=== PATIENT | male | born 1950 | race Caucasian/White ===

== ENCOUNTER → 2022-06-21 14:34 | Outpatient (CLI) | payer MEDICARE, MEDICAID, SELFPAY ==
[2022-06-21 14:13] LABS: Basophils # 0.1 K/mm3 (0-0.2); Basophils % 0.5 % (0.1-2.0); Eosinophils # 0.2 K/mm3 (0.0-0.4); Eosinophils % 2.1 % (0.1-12.0); Hematocrit 40.4 % (42.0-52.0); Lymphocytes # 2.6 K/mm3 (0.7-4.5); Lymphocytes % 25.2 % (10-50); Mean Corpuscular Hemoglobin 37.2 pg (27.0-31.2); Mean Corpuscular Volume 88.6 fl (80-94); Mean Platelet Volume 9.2 fl (7.4-10.4); Monocytes # 0.8 K/mm3 (0.1-1.0); Monocytes % 7.3 % (1.7-9.3); Neutrophils # 6.8 K/mm3 (1.8-7.8); Platelet Count 432 K/mm3 (142-424); Red Blood Count 4.56 M/mm3 (4.60-6.20); White Blood Count 10.4 K/mm3 (4.8-10.8)
[2022-06-21 14:22] LABS: Chloride 103 mmol/L (98-107); Potassium 4.2 mmoL/L (3.5-5.1); Sodium 138 mmol/L (136-145)
[2022-06-21 14:24] LABS: Alanine Aminotransferase 22 U/L (12-78); Alkaline Phosphatase 98 U/L (38-126); Aspartate Amino Transferase 25 U/L (17-59); Bilirubin,Total 0.7 mg/dl (0.2-1.3); Blood Urea Nitrogen 18 mg/dl (9-20); Estimated Glomerular Filt Rate 96 ml/min (>60); GFR (African American) 116 ML/MIN (>60)
[2022-06-21 14:25] LABS: Albumin/Globulin Ratio 1.5 (1.1-1.8); Anion Gap 18.2 mEq/L (5-15); Calcium 9.4 mg/dl (8.4-10.2); Carbon Dioxide 21 mmol/L (22.0-30.0); Chol/HDL Ratio 3.1 (1-3.5); Cholesterol 129 mg/dl (140-200); Globulin 2.6 g/dL (1.3-3.2); Glucose 77 mg/dl (74-100); HDL Cholesterol 41 mg/dl (40-60); Total Protein,Serum 6.6 g/dl (6.3-8.2); Triglycerides 155 mg/dl (30-150); VLDL Cholesterol 31 mg/dL (0-40)
[2022-06-21 14:37] LABS: Direct LDL Cholesterol 71.37 mg/dL (100-129)
[2022-06-21 15:33] LABS: Mean Corpuscular HGB Conc 41.9 g/dL (31.8-35.4)
== END ==
PROVIDERS: PCP Family Medicine; Visit Provider Family Medicine
DX: M54.9 Dorsalgia, unspecified; Z12.5 Encounter for screening for malignant neoplasm of prostate; E78.00 Pure hypercholesterolemia, unspecified
CPT/HCPCS: 80053; 80061; 85025; 87086; G0103

== ENCOUNTER 2023-08-28 10:19 | Outpatient (CLI) | payer MEDICARE, MEDICAID, SELFPAY ==
[2023-08-28 18:29] LABS: Basophils # 0.1 K/mm3 (0-0.2); Basophils % 0.8 % (0.1-2.0); Eosinophils # 0.2 K/mm3 (0.0-0.4); Eosinophils % 1.9 % (0.1-12.0); Hemoglobin 16.1 g/dL (14.1-18.0); Lymphocytes # 2.3 K/mm3 (0.7-4.5); Lymphocytes % 27.8 % (10-50); Mean Corpuscular HGB Conc 32.2 g/dL (31.8-35.4); Mean Corpuscular Hemoglobin 33.1 pg (27.0-31.2); Mean Platelet Volume 8.7 fl (7.4-10.4); Monocytes # 0.6 K/mm3 (0.1-1.0); Monocytes % 7.9 % (1.7-9.3); Neutrophils % 61.6 % (37.0-80.0); Platelet Count 268 K/mm3 (142-424); Red Blood Count 4.86 M/mm3 (4.60-6.20); White Blood Count 8.1 K/mm3 (4.8-10.8)
[2023-08-28 19:34] LABS: Alanine Aminotransferase 21 U/L (12-78); Albumin Level 3.8 g/dl (3.5-5.0); Albumin/Globulin Ratio 1.4 (1.1-1.8); Alkaline Phosphatase 98 U/L (38-126); Anion Gap 9.4 mEq/L (5-15); Aspartate Amino Transferase 24 U/L (17-59); Bilirubin,Total 0.6 mg/dl (0.2-1.3); Blood Urea Nitrogen 15 mg/dl (9-20); Calcium 9.4 mg/dl (8.4-10.2); Carbon Dioxide 24 mmol/L (22.0-30.0); Chloride 110 mmol/L (98-107); Chol/HDL Ratio 2.9 (1-3.5); Cholesterol 142 mg/dl (140-200); Estimated Glomerular Filt Rate 83 ml/min (>60); GFR (African American) 101 ML/MIN (>60); Globulin 2.7 g/dL (1.3-3.2); Glucose 80 mg/dl (74-100); HDL Cholesterol 49 mg/dl (40-60); Potassium 4.4 mmoL/L (3.5-5.1); Sodium 139 mmol/L (136-145); Total Protein,Serum 6.5 g/dl (6.3-8.2); Triglycerides 72 mg/dl (30-150); VLDL Cholesterol 14 mg/dL (0-40)
[2023-08-28 19:53] LABS: Direct LDL Cholesterol 81.22 mg/dL (100-129)
[2023-08-28 20:04] LABS: Prostate Specific Ag Screen 3.1 ng/ml (0.0-4.0)
== END 2023-08-28 23:59 | disposition home or self-care (01) ==
LOC: LAB.DROPOF 08-29 10:20
PROVIDERS: PCP Family Medicine; Visit Provider Family Medicine
DX: Z12.5 Encounter for screening for malignant neoplasm of prostate (principal); E78.5 Hyperlipidemia, unspecified
CPT/HCPCS: 80053; 80061; 85025; G0103

== ENCOUNTER 2023-11-21 07:01 | Outpatient (CLI) | payer MEDICARE, MEDICAID, SELFPAY ==
--- NOTE | 2023-11-21 | CA_ITS ---
APPROVED REPORT Exam: Pharmacologic Technologist: Corinna Nelson Ht: 6 ft 1 in Wt: 292 lbs BSA: 2.53 m2 HR: 50 bpm BP: 124/87 mmHg Indications: Dyspnea, CAD Medical History Medications: Hydralazine,,,,, Aspirin,,,,, Atorvastatin,,,,, MeLOXICAM,,,,, Cyclobenzaprine,,,,, Hydrocodone-Acetaminophen,,,,, Amlodipine-Benazepril,,,,, LiNgclotide,,,,, Stress Test Details Test: LEXISCAN HR Resting HR: 53 bpm Max Heart Rate (APMHR): 149 bpm Max HR Achieved: 78 bpm Target HR (85% APMHR): 127 bpm % of APMHR: 52 Recovery HR: 62 bpm BP Resting BP: 124.0/87.0 mmHg Max BP: 146.0/89.0 mmHg Recovery BP: 146.0/89.0 mmHg ECG Resting ECG: Sinus bradycardia Stress ECG: No significant ST changes Arrhythmia: PVCs Clinical Exercise duration: 04:05 min Highest Stage Achieved: Stress ECG Conclusion Symptoms: Dyspnea Arrhythmias/Ectopy: PVC ST-T Changes: No significant ST changes. Conclusion: EKG portion unremarkable due to Lexiscan infusion. Myoview images reported separately. Test Summary REST . . . . . . . Resting REST 02:47 . . 53 . 124/ 87 . . Stage 1 . . . . . . . Myoview Injected Stage 1 01:00 . . 73 . . . . Stage 2 01:00 . . 63 . . . . Stage 3 01:00 . . 65 . 134/ 74 . . Stage 4 01:00 . . 64 . 134/114 . . Stage 4 01:05 . . 65 . 145/ 86 . Stop exercise at 04:05 RECOVERY 01:00 . . 63 . . . . RECOVERY 02:00 . . 61 . 145/ 82 . . RECOVERY 02:49 . . 62 . 146/ 89 . . Electronically signed by : Kathia Bradley MD 11/21/2023 12:41:44
--- NOTE | 2023-11-21 07:03 | NM_ITS ---
APPROVED REPORT Exam: Nuclear Stress Test Indication: SOB, HTN, High cholesterol, Tobacco use, Family history Patient Location: Outpatient Stress Tech: Corinna Nelson [place] Tech:Hannah Starr, ARRT, RT (R)(N) Ht: 6 ft 1 in Wt: 290 lbs HR: 53 bpm BP: 124/87 mmHg BSA: 2.52 m2 TID: 1.28 BMI: 38.2 History: SOB, HTN, High cholesterol, Tobacco use, Family history Procedure: Patient received 0.4 mg of intravenous Lexiscan, resting heart rate 53 bpm, resting blood pressure 124/87 mmHg, with Lexiscan maximum heart rate achieved was 78 bpm which is % of the maximum predicted heart rate and blood pressure was 146/89 mmHg. With Lexiscan, patient denied any complaint of chest pain. Cardiac Stress and Resting SPECT Images: Cardiac Stress and Resting SPECT images were obtained using technetium 99m Myoview 31.4 mCi stress and 10.27 mCi at rest. Resting and stress imaging in supine and prone positions demonstrate a medium sized, moderate, partially reversible perfusion defect in the inferior and inferolateral LV wall. There is increase in transit ischemic dilatation ratio (TID 1.28), suggestive of possible multivessel disease or balanced ischemia. Gated imaging demonstrates normal global and regional LV systolic function. LVEF is calculated at 62%. Conclusion: Medium sized, moderate, partially reversible perfusion defect in the inferior and inferolateral LV wall. Findings are suggestive of partial reversible ischemia. There is increase in transit ischemic dilatation ratio (TID 1.28), suggestive of possible multivessel disease or balanced ischemia. Gated imaging demonstrates normal global and regional LV systolic function. LVEF is calculated at 62%. Electronically signed by : Kathia Bradley MD 11/21/2023 12:43:15
--- NOTE | 2023-11-21 07:45 | CA_ITS ---
APPROVED REPORT EXAM: Comprehensive 2D, Doppler, and color-flow Echocardiogram House Visitor: Christa Vaughn RT(R) Ht: 6 ft 1 in Wt: 292lbs BSA: 2.53 BP: 159/87 mmHg Indications: dyspnea, HTN, hyperlipidemia, smoker 2D Dimensions LA Volume 59.10 mL LA Volume Index 23.36 mL/m2 (M/F) 16-34 EF AP4 77.00 % GL Strain -22.6 % M-Mode Dimensions RVDd 3.49 cm (0.9-2.6) LVDd 3.93 cm (3.5-5.7) LVDs 2.99 cm (3.5-5.7) IVSd 1.34 cm (0.6-1.1) PWd 1.39 cm (0.6-1.1) EF (Teich) 48.30% FS 23.90% EDV (Teich) 67.10 mL ESV (Teich) 34.70 mL LV Diastology E Decel Time 223 (160-240 msec) E/A Ratio 1.2 Mitral Valve MV E Max Michael. 102.0 (40-130 cm/s) MV A Velocity 85.0 (40-130 cm/s) E/A Ratio 1.19 MV PHT 65.0 ms Tricuspid Valve TR P. Velocity 215.00 cm/s RAP Estimate 10.00 mmHg RVSP 28.50 mmHg Left Ventricle The left ventricle is normal size. The left ventricular systolic function is normal. The left ventricular ejection fraction is within the normal range. There is increased LV wall thickness. There is normal LV segmental wall motion. The left ventricular diastolic function is normal. LVEF is 55%. Right Ventricle The right ventricle is normal size. The right ventricular systolic function is normal. Atria The left atrium size is normal. The right atrium size is normal. The interatrial septum is not well-visualized. Aortic Valve The aortic valve is mildly thickened. There is no aortic valvular stenosis. No aortic regurgitation is present. Mitral Valve The mitral valve is normal in structure. No evidence of mitral valve stenosis. Trace mitral regurgitation. Tricuspid Valve The tricuspid valve leaflets are thin and pliable. Trace tricuspid regurgitation. RVSP is normal. Pulmonic Valve The pulmonary valve is normal in structure. Trace pulmonic regurgitation. Great Vessels The aortic root is normal in size. The ascending aorta is normal in size. The IVC is not well-visualized. Pericardium There is no pericardial effusion. Other Information Study Quality: Fair Conclusion Normal biventricular systolic function. No significant valvular stenosis or regurgitation. Electronically signed by : Kathia Bradley MD 11/21/2023 12:33:36
[2023-11-21] MEDS: SODIUM CHLORIDE 0.9% 10ML SYR (RAD ONLY) 10 ML IV ×2 (09:13)
[2023-11-21] MEDS: ISOTOPE MYOVIEW (PER STUDY) 1 DOSE IV (09:13)
[2023-11-21] MEDS: REGADENOSON 0.4MG/5ML SYRINGE 0.4 MG IV (09:13)
== END 2023-11-21 23:59 | disposition home or self-care (01) ==
LOC: RAD 07:01
PROVIDERS: PCP Family Medicine; Visit Provider Nurse Practitioner Family
DX: R06.09 Other forms of dyspnea (principal); I25.10 Atherosclerotic heart disease of native coronary artery without angina pectoris; I10 Essential (primary) hypertension; E78.49 Other hyperlipidemia
CPT/HCPCS: 78452; 93017; 93018; 93306; A9502; J2785

== ENCOUNTER 2023-12-07 07:44 | Day surgery (SDC) | payer MEDICARE, MEDICAID, SELFPAY ==
[2023-12-07] VITALS (11 sets, daily range): BP systolic 136–166; BP diastolic 68–96; PULSE 45–85; RESP 16–20; O2SAT 92–99; BMI 38.4
--- NOTE | 2023-12-07 07:06 | IR_ITS ---
APPROVED REPORT Patient Location: Outpatient PROCEDURES Left heart catheterization Left ventriculogram Selective coronary angiogram Drug-eluting stent deployment to the dominant right coronary artery Drug-eluting stent deployment to the circumflex artery INDICATION Coronary artery disease, Angina pectoris, Abnormal Myoview, Informed consent was obtained prior to the procedure. COMPLICATIONS none Estimated Blood Loss: less than 10ml TECHNIQUE One percent lidocaine used to anesthetize the right anterior aspect of the wrist. The right radial artery was accessed via the Seldinger technique. A 6 Tunisian sheath was placed in the right radial artery. 2.5 mg of Verapamil, 800 mcg of nitroglycerin, 1mg Lidocaine and 5000 U Heparin were given through the arterial sheath. The 6 Tunisian JL 3 guide catheter was also used to perform selective coronary angiogram. At the end the diagnostic angiogram therapeutic heparin was administered giving a therapeutic ACT and the guide catheter was placed in the right coronary artery followed by Choice PT extra-support wire a 4 mm x 38 mm Omar frontier stent was deployed at 20 jaylen reducing the severe stenosis to 0%. The apparatus was then removed after BELA-3 flow was present before and after procedure. The wire was placed in the circumflex artery where a 3.5 x 22 mm Omar frontier stent was then deployed at 18 jaylen reducing the stenosis to 0% BELA-3 flow was present before and after the procedure. At the end the procedure the apparatus was removed the sheath was removed and hemostasis was achieved and TR band patient was transferred to the postop putting in stable condition ANGIOGRAPHIC RESULTS The left main artery Normal The left anterior descending artery Has a proximal eccentric calcified 30% stenosis with an additional mid vessel 20% stenosis The circumflex artery Is nondominant has a mid vessel 70% concentric stenosis The right coronary artery Is dominant and has a proximal 50 followed by a mid vessel concentric 70% stenosis with distal 30 and 40% stenoses The WILLS ventriculogram reveals Not performed The left ventricular end-diastolic pressure Not measured IMPRESSION Severe two-vessel coronary disease as described above Successful stenting of the proximal to mid dominant right coronary severe disease reduced to 0% with 1 drug-eluting stent Successful stenting of the circumflex artery severe disease reduced to 0% with 1 drug-eluting stent PLAN 1. Effient and aspirin 2. Cardiac rehabilitation 3. LDL less than 55 to achieve that high intensity statin 4. Avoidance of tobacco products 5. Risk factor modification Electronically signed by : Yaron Pimentel MD 12/07/2023 14:37:36
[2023-12-07 08:17] LABS: Basophils # 0.1 K/mm3 (0-0.2); Basophils % 1.3 % (0.1-2.0); Eosinophils # 0.2 K/mm3 (0.0-0.4); Eosinophils % 2.4 % (0.1-12.0); Hematocrit 49.1 % (42.0-52.0); Hemoglobin 16.7 g/dL (14.1-18.0); Lymphocytes # 2.4 K/mm3 (0.7-4.5); Lymphocytes % 24.1 % (10-50); Mean Corpuscular Hemoglobin 32.5 pg (27.0-31.2); Mean Corpuscular Volume 95.5 fl (80-94); Mean Platelet Volume 7.1 fl (7.4-10.4); Monocytes # 0.7 K/mm3 (0.1-1.0); Monocytes % 6.6 % (1.7-9.3); Neutrophils # 6.6 K/mm3 (1.8-7.8); Neutrophils % 65.6 % (37.0-80.0); Platelet Count 274 K/mm3 (142-424); Red Blood Count 5.14 M/mm3 (4.60-6.20); Red Cell Distribution Width 14.2 % (11.5-17.5); White Blood Count 10.1 K/mm3 (4.8-10.8)
[2023-12-07 08:25] LABS: Chloride 109 mmol/L (98-107); Potassium 3.8 mmoL/L (3.5-5.1); Sodium 140 mmol/L (136-145)
[2023-12-07 08:28] LABS: Anion Gap 8.8 mEq/L (5-15); Blood Urea Nitrogen 17 mg/dl (9-20); Calcium 9.4 mg/dl (8.4-10.2); Carbon Dioxide 26 mmol/L (22.0-30.0); Creatinine Clearance Estimated 115 mL/min (50-200); Estimated Glomerular Filt Rate 66 ml/min (>60); GFR (African American) 80 ML/MIN (>60); Glucose 90 mg/dl (74-100)
[2023-12-07] MEDS: HEPARIN 1,000 UNITS/ML 10ML VIAL (CATH LAB) 10000 UNIT IV ×2 (11:33→12:28)
[2023-12-07] MEDS: diphenhydrAMINE 50MG/ML VIAL 50 MG IV (11:34)
[2023-12-07] MEDS: NITROGLYCERIN 800MCG/8ML SYR (CATH LAB) 800 MCG IA (11:34)
[2023-12-07] MEDS: LIDOCAINE 1% 10ML MDV 20 ML IJ (11:34)
[2023-12-07] MEDS: HEPARIN 1,000 UNITS/500ML NS (CATH LAB) 3000 UNIT IV (11:34)
[2023-12-07] MEDS: 0.9 % SODIUM CHLORIDE 500 ML 25 ML IV (11:35)
[2023-12-07] MEDS: VERAPAMIL 2.5MG/ML 2ML VIAL 2.5 MG IV (11:35)
[2023-12-07] MEDS: PRASUGREL 10MG TAB 60 MG PO (12:35)
[2023-12-07] MEDS: FENTANYL 100MCG/2ML VIAL 50 MCG IV (12:42)
[2023-12-07] MEDS: MIDAZOLAM HCL 1MG/ML 5ML VIAL 1 MG IV (12:43)
[2023-12-07] MEDS: IOPAMIDOL-370 (76%);100ML BOTTLE 100 ML IV (14:51)
[2023-12-07 14:56] LABS: CATHL Activated Clotting Time > 400 SEC (74-125)
== END 2023-12-07 14:48 | disposition home or self-care (01) ==
PROVIDERS: PCP Family Medicine; Visit Provider Internal Medicine
DX: R94.39 Abnormal result of other cardiovascular function study; I25.118 Atherosclerotic heart disease of native coronary artery with other forms of angina pectoris; R06.09 Other forms of dyspnea; I10 Essential (primary) hypertension; E78.49 Other hyperlipidemia; Z79.899 Other long term (current) drug therapy
CPT/HCPCS: 80048; 85025; 85347; 92928; 93454; 99152; C1725; C1760; C1769; C1874; C9600; J1200; J1644; J2250; J3010; Q9967

== ENCOUNTER 2023-12-11 08:01 | Outpatient (CLI) | payer MEDICARE, MEDICAID, SELFPAY ==
[2023-12-11 08:43] LABS: Basophils # 0.1 K/mm3 (0-0.2); Eosinophils # 0.2 K/mm3 (0.0-0.4); Eosinophils % 2.1 % (0.1-12.0); Hematocrit 48.7 % (42.0-52.0); Lymphocytes # 2.8 K/mm3 (0.7-4.5); Lymphocytes % 28.9 % (10-50); Mean Corpuscular HGB Conc 32.8 g/dL (31.8-35.4); Mean Corpuscular Hemoglobin 32.1 pg (27.0-31.2); Mean Corpuscular Volume 97.7 fl (80-94); Mean Platelet Volume 7.1 fl (7.4-10.4); Monocytes # 0.8 K/mm3 (0.1-1.0); Monocytes % 8.1 % (1.7-9.3); Neutrophils # 5.7 K/mm3 (1.8-7.8); Neutrophils % 59.8 % (37.0-80.0); Platelet Count 290 K/mm3 (142-424); Red Blood Count 4.99 M/mm3 (4.60-6.20); Red Cell Distribution Width 14.1 % (11.5-17.5); White Blood Count 9.6 K/mm3 (4.8-10.8)
[2023-12-11 09:05] LABS: Blood Urea Nitrogen 22 mg/dl (9-20); Calcium 9.8 mg/dl (8.4-10.2); Carbon Dioxide 26 mmol/L (22.0-30.0); Chloride 111 mmol/L (98-107); Estimated Glomerular Filt Rate 83 ml/min (>60); GFR (African American) 101 ML/MIN (>60); Glucose 73 mg/dl (74-100); Sodium 141 mmol/L (136-145)
[2023-12-11 09:20] LABS: Anion Gap 7.8 mEq/L (5-15); Potassium 3.8 mmoL/L (3.5-5.1)
== END 2023-12-11 23:59 | disposition home or self-care (01) ==
LOC: LAB 08:04
PROVIDERS: PCP Family Medicine; Visit Provider Internal Medicine
DX: I25.10 Atherosclerotic heart disease of native coronary artery without angina pectoris (principal); I10 Essential (primary) hypertension
CPT/HCPCS: 36415; 80048; 85025

== ENCOUNTER 2024-03-11 08:11 | Outpatient (CLI) | payer MEDICARE, MEDICAID, SELFPAY ==
[2024-03-11 18:40] LABS: Albumin Level 3.9 g/dl (3.5-5.0); Chloride 108 mmol/L (98-107); Potassium 4.7 mmoL/L (3.5-5.1); Sodium 136 mmol/L (136-145)
[2024-03-11 18:43] LABS: Alanine Aminotransferase 25 U/L (12-78); Albumin/Globulin Ratio 1.6 (1.1-1.8); Alkaline Phosphatase 106 U/L (38-126); Anion Gap 10.7 mEq/L (5-15); Aspartate Amino Transferase 25 U/L (17-59); Bilirubin,Total 0.4 mg/dl (0.2-1.3); Blood Urea Nitrogen 23 mg/dl (9-20); Calcium 9.2 mg/dl (8.4-10.2); Carbon Dioxide 22 mmol/L (22.0-30.0); Chol/HDL Ratio 3.2 (1-3.5); Cholesterol 122 mg/dl (140-200); Estimated Glomerular Filt Rate 83 ml/min (>60); GFR (African American) 100 ML/MIN (>60); Globulin 2.5 g/dL (1.3-3.2); Glucose 85 mg/dl (74-100); HDL Cholesterol 38 mg/dl (40-60); Total Protein,Serum 6.4 g/dl (6.3-8.2); Triglycerides 91 mg/dl (30-150); VLDL Cholesterol 18 mg/dL (0-40)
[2024-03-11 18:58] LABS: Direct LDL Cholesterol 66.83 mg/dL (100-129)
[2024-03-11 19:24] LABS: HIV Combo NEGATIVE (Negative)
[2024-03-11 19:35] LABS: Hepatitis C Ab Qual. W/ RFX NEGATIVE (Negative)
== END 2024-03-11 23:59 | disposition home or self-care (01) ==
LOC: LAB.DROPOF 03-12 07:40
PROVIDERS: PCP Family Medicine; Visit Provider Family Medicine
DX: I10 Essential (primary) hypertension (principal); I25.10 Atherosclerotic heart disease of native coronary artery without angina pectoris; Z95.5 Presence of coronary angioplasty implant and graft; E78.5 Hyperlipidemia, unspecified; Z11.4 Encounter for screening for human immunodeficiency virus [HIV]; Z11.59 Encounter for screening for other viral diseases
CPT/HCPCS: 80053; 80061; 86803; 87389

== ENCOUNTER 2025-01-02 08:46 | Outpatient (CLI) | payer MEDICARE, SELFPAY ==
--- OUTSIDE RECORDS SUMMARY | 2025-01-02 08:51 | XMS_ITS | Encounter Summary ---
Author Organization [place] [address] Care Team Providers Care Blast Furnace Keeper Name Role Phone Alex Crawley MD Primary Care Provider [phone] Encounter Details Date Type Department Care Team (Late st Contact Info) Description 06/11/2012 Orders Only SEP Gastro [facility] [address] [place] [address] [place] [address] [place] [address] Social History Tobacco Use Types Packs/Day Years Used Date Smoking Tobacco: Some Days Cigarettes Smokeless Tobacco: Never Alcohol Use Standard Drinks/Week Comments No 0 (1 standard drink = 0.6 oz pur e alcohol) Sexually Active Control Partners Comments Yes Female Sex and Gender Information Value Date Recorded Sex Assigned at Not on file Legal Sex Male 4:01 AM EDT Gender Identity Not on file Sexual Orientation Not on file documented as of this encounter Plan of Treatment Not on file documented as of this encounter Procedures Procedure Name Priority Date/Time Associated Diagnosis Comments GMED COLONOSCOPY Routine 06/11/2012 2:15 PM EDT documented in this encounter Results * GMED COLONOSCOPY (06/11/2012 2:15 PM EDT) 06/11/2012 2:15 PM EDT Impressions [facility] - 06/11/2012 3:06 PM EDT Internal hemorrhoids. Polyp (3 mm) in the cecum. (Polypectomy). Plan: Continue home medications Await pathology results Interval to next Colonoscopy will be based upon histology of polyp. This section is an excerpt of the full report, which can be found by clicking the hyperlink. us Rene Driscoll MD GI PROCEDURE ORDERABLES Caitie henna Result Performing Organization Address City/State/[facility] [place] [address] documented in this encounter Visit Diagnoses Not on filedocumented in this encounter Care Teams Blast Furnace Keeper Relationship Specialty Start Date End Date Alex Crawley MD PCP - General 08/19/09 documented as of this encounter
--- OUTSIDE RECORDS SUMMARY | 2025-01-02 08:51 | XMS_ITS | Clinical Summary ---
Author Organization [facility] Address [address] [place] [address] Phone Care Team Providers Care Director Stage Name Role Phone Alex Crawley MD Primary Care Provider [phone] Allergies No known active allergies Medications simvastatin (ZOCOR) 40 mg Take 40 mg by mouth daily. Active amLODIPine-chemo zepril (LOTREL) 5-40 mg per capsuleIndicati ons:hypertensio n Take 1 Cap by mouth daily. 10/40 mg Indications: Hypertension Active linaclotide (LINZESS) 145 mcg CapIndications: Constipation Take 145 mcg by mouth daily. Active magnesium citrate Soln Take 296 mL by mouth daily as needed. Active polyethylene glycol (GLYCOLAX) 17 gram/dose powderIndicatio ns:Constipation Take 17 g by mouth daily. Active atorvastatin (LIPITOR) 40 mg Oral Tablet Take 40 mg by mouth nightly. Active meloxicam (MOBIC) 15 mg Oral Tablet Take 15 mg by mouth daily. Active acetaminophen 325 mg Oral Tab Take by mouth every 4 hours as needed for Pain. 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 Medical History Medical History Date Comments Arthritis Hypertension Hiatal hernia surgery done Constipation Eye globe prosthesis left Hyperlipidemia Nerve damage vagal nerve Family History Medical History Relation Name Comments Cancer Brother 1 Cancer Father Heart Disease Mother Early Sister Anesth Problems Neg Hx Relation Name Status Comments Brother 1 Alive Brother 2 Alive Brother 3 Alive Brother 4 Alive Father Mother Sister Social History Tobacco Use Types Packs/Day Years Used Date Smoking Tobacco: Some Days Cigarettes 0.5 45 Smokeless Tobacco: Never Tobacco Cessation:Ready to Q uit: No Comments:refused info Alcohol Use Standard Drinks/Week Comments No 0 (1 standard drink = 0.6 oz pur e alcohol) Sexually Active Control Partners Comments Yes Female Sex and Gender Information Value Date Recorded Sex Assigned at Not on file Legal Sex Male 4:01 AM EDT Gender Identity Not on file Sexual Orientation Not on file Last Filed Vital Signs Vital Sign Reading Time Taken Comments Blood Pressure 111/73 04/15/2016 7:36 PM EST Pulse 64 04/15/2016 7:36 PM EST Temperature 36.6 C (97.8 F) 04/15/2016 6:30 PM EST Respiratory Rate 18 04/15/2016 7:36 PM EST Oxygen Saturation 94% 04/15/2016 7:36 PM EST Inhaled Oxygen Concentration - - Weight 131.5 kg (290 lb) 04/15/2016 6:30 PM EST Height 185.4 cm (6' 1 ) 02/12/2016 7:31 AM EST Body Mass Index 38.26 02/12/2016 7:31 AM EST Plan of Treatment Health Maintenance Due Date Last Done Comments Wellness Exam Medicare 12/24/1953 Hepatitis C Screening 12/24/1969 DTaP/TDaP/Td (1 - Tdap) 12/24/1970 Cologuard 12/24/1996 FIT 12/24/1996 Sigmoidoscopy 12/24/1996 Virtual Colonography 12/24/1996 Low Dose Lung Cancer Screening 12/24/2001 Pneumococcal Vaccine 50+ (1 of 1 - PCV) 12/24/2001 Zoster (1 of 2) 12/24/2001 Colon Cancer Screening 06/11/2017 Colonoscopy 06/11/2017 06/11/2012 COVID-19 Vaccine ( season) 2024 12/30/2020, 05/21/2020, 04/16/2020 Influenza Vaccine (#1) 2024 , 12/20/2019, 12/01/2016, Additional history exists Hepatitis B Vaccine Aged Out No longe r eligible based on patient's age to complete this topic Meningococcal B Vaccine Aged Out No l onger eligible based on patient's age to complete this topic Medical Devices Implanted Type Area Spray Dry Operator Device Identifier Shelf Expiration Date Model / Serial / Lot [employer] Y-Knot Rc With [place] 2 - [id number] Implanted:Qty: 1 on 02/12/2016 by Wade Duque MD at [facility] Left: Shoulder CONMED:LINVATEC 11/22/2020 [id number] / / [id number] Procedures Procedure Name Priority Date/Time Associated Diagnosis Comments GMED COLONOSCOPY Routine 06/11/2012 2:15 PM EDT from Last 3 Months or Most Recently Relevant to Health Maintenance Results * GMED COLONOSCOPY (06/11/2012 2:15 PM EDT) 06/11/2012 2:15 PM EDT Impressions [facility] - 06/11/2012 3:06 PM EDT Internal hemorrhoids. Polyp (3 mm) in the cecum. (Polypectomy). Plan: Continue home medications Await pathology results Interval to next Colonoscopy will be based upon histology of polyp. This section is an excerpt of the full report, which can be found by clicking the hyperlink. us Rene Driscoll MD GI PROCEDURE ORDERABLES Caitie aguillon Result [facility] [address] [place] [address] from Last 3 Months or Most Recently Relevant to Health Maintenance Insurance [place] [address] MEDICAID [place] Care Teams Director Stage Relationship Specialty Start Date End Date Alex Crawley MD PCP - General 08/19/09
[2025-01-02 09:33] LABS: Hematocrit 46.2 % (42.0-52.0); Hemoglobin 15.7 g/dL (14.1-18.0); Immature Granulocytes % 0.2 %; Mean Corpuscular HGB Conc 34.0 g/dL (31.8-35.4); Mean Corpuscular Hemoglobin 32.2 pg (27.0-31.2); Mean Corpuscular Volume 94.9 fl (80-94); Nucleated Red Blood Cells % 0 %; Platelet Count 282 K/mm3 (142-424); Red Blood Count 4.87 M/mm3 (4.60-6.20); Red Cell Distribution Width-SD 47.0 fL; White Blood Count 10.2 K/mm3 (4.8-10.8)
[2025-01-02 10:01] LABS: Alanine Aminotransferase 19 U/L (12-78); Albumin Level 4.1 g/dl (3.5-5.0); Alkaline Phosphatase 93 U/L (38-126); Anion Gap 9.4 mEq/L (5-15); Aspartate Amino Transferase 21 U/L (17-59); Bilirubin,Direct 0.1 mg/dl (0.0-0.4); Bilirubin,Indirect 0.8 mg/dL (0.0-0.9); Bilirubin,Total 0.9 mg/dl (0.2-1.3); Bilirubin,Unconjugated 0.7 mg/dL (0.0-1.1); Blood Urea Nitrogen 25 mg/dl (9-20); Calcium 9.5 mg/dl (8.4-10.2); Carbon Dioxide 24 mmol/L (22.0-30.0); Chloride 108 mmol/L (98-107); Cholesterol 120 mg/dl (140-200); Creatinine,Serum 1.10 mg/dl (0.66-1.25); Estimated Glomerular Filt Rate 66 ml/min (>60); GFR (African American) 79 ML/MIN (>60); Glucose 90 mg/dl (74-100); HDL Cholesterol 43 mg/dl (40-60); Magnesium 1.6 mg/dl (1.6-2.3); Potassium 4.4 mmoL/L (3.5-5.1); Sodium 137 mmol/L (136-145); Total Protein,Serum 6.7 g/dl (6.3-8.2); Triglycerides 124 mg/dl (30-150)
[2025-01-02 10:14] LABS: Free T4 (Free Thyroxine) 0.87 ng/dl (0.78-2.19)
[2025-01-02 10:30] LABS: Thyroid Stimulating Hormone 1.11 uIU/mL (0.465-4.68)
== END 2025-01-02 23:59 | disposition home or self-care (01) ==
LOC: LAB 08:47
PROVIDERS: PCP Family Medicine; Visit Provider Nurse Practitioner
DX: I49.1 Atrial premature depolarization (principal); I47.19 Other supraventricular tachycardia; I49.3 Ventricular premature depolarization; I25.118 Atherosclerotic heart disease of native coronary artery with other forms of angina pectoris; R00.1 Bradycardia, unspecified; I10 Essential (primary) hypertension; E78.49 Other hyperlipidemia
CPT/HCPCS: 36415; 80048; 80061; 80076; 83735; 84439; 84443; 85025; 93270

== ENCOUNTER 2025-01-09 08:24 | Outpatient (CLI) | payer MEDICARE, SELFPAY ==
--- OUTSIDE RECORDS SUMMARY | 2025-01-09 08:33 | XMS_ITS | Encounter Summary ---
Author Organization [place] [address] Care Team Providers Care Pulp Making Plant Operator Name Role Phone Alex Crawley MD Primary Care Provider [phone] Encounter Details Date Type Department Care Team (Late st Contact Info) Description 06/11/2012 Orders Only SEP Gastro [facility] [address] [facility] [address] [place] [address] [place] [address] [place] [address] Social History Tobacco Use Types [...] PM EDT) 06/11/2012 2:15 PM EDT Impressions [facility] - 06/11/2012 3:06 PM EDT Internal hemorrhoids. Polyp (3 mm) in the cecum. (Polypectomy). Plan: Continue home medications Await pathology results Interval to next Colonoscopy will be based upon histology of polyp. This section is an excerpt of the full report, which can be found by clicking the hyperlink. us Rene Driscoll MD GI PROCEDURE ORDERABLES Caitie henna Result Performing Organization Address City/State/[facility] [place] [address] documented in this encounter Visit Diagnoses Not on filedocumented in this encounter Care Teams Pulp Making Plant Operator Relationship Specialty Start Date End Date Alex Crawley MD PCP - General 08/19/09 documented as of this encounter
--- OUTSIDE RECORDS SUMMARY | 2025-01-09 08:33 | XMS_ITS | Clinical Summary ---
Author Organization [facility] Address [address] [place] [address] Phone Care Team Providers Care Shrimp Trawler Name Role Phone Alex Crawley MD Primary Care Provider [phone] Allergies No known active allergies Medications simvastatin [...] JOINT EXCISION; Surgeon: Wade Duque MD; Location: [facility]; Service: Orthopedics Medical devices from this surgery [...] this topic Medical Devices Implanted Type Area Aircraft Ordnance Technician Device Identifier Shelf Expiration Date Model / Serial / Lot [place] Y-Knot Rc With [place] 2 - [id number] Implanted:Qty: 1 on 02/12/2016 by Wade Duque MD at [facility] Left: Shoulder CONMED:LINVATEC 11/22/2020 [id number] / / [id number] Procedures Procedure Name Priority Date/Time Associated Diagnosis Comments GMED COLONOSCOPY Routine 06/11/2012 2:15 PM EDT from Last 3 Months or Most Recently Relevant to Health Maintenance Results * GMED COLONOSCOPY (06/11/2012 2:15 PM EDT) 06/11/2012 2:15 PM EDT Impressions [facility] - 06/11/2012 3:06 PM EDT Internal hemorrhoids. Polyp (3 mm) in the cecum. (Polypectomy). Plan: Continue home medications Await pathology results Interval to next Colonoscopy will be based upon histology of polyp. This section is an excerpt of the full report, which can be found by clicking the hyperlink. us Rene Driscoll MD GI PROCEDURE ORDERABLES Caitie aguillon Result [facility] [address] [place] [address] from Last 3 Months or Most Recently Relevant to Health Maintenance Insurance [place] [address] MEDICAID [place] Care Teams Shrimp Trawler Relationship Specialty Start Date End Date Alex Crawley MD PCP - General 08/19/09
--- NOTE | 2025-01-09 09:00 | CA_ITS ---
FINAL REPORT TECHNIQUE: [place]leton scale, color and spectral doppler images of the bilateral carotid arteries were obtained. CLINICAL HISTORY: DIZZINESS,HTN,HLD,CAD COMPARISON: None FINDINGS: Peak systolic velocity in the right internal carotid artery is 60 cm/sec. The internal carotid to common carotid artery ratio is 0.97. There is no significant carotid artery stenosis and mild to moderate plaque formation. The right vertebral artery is normal in direction. Peak systolic velocity in the left internal carotid artery is 73 cm/sec. The internal carotid to common carotid artery ratio is 0.9. There is no significant carotid artery stenosis and mild to moderate plaque formation. The left vertebral artery is normal in direction. IMPRESSION: No ultrasound evidence of hemodynamically significant carotid artery stenosis. Normal peak systolic velocities and normal internal to common carotid artery ratios bilaterally. Reviewed, Interpreted and Dictated by Neftaly Rivera MD Transcribed by Patricia Israel Authenticated and [facility]
--- NOTE | 2025-01-09 09:45 | CA_ITS ---
APPROVED REPORT EXAM: Comprehensive 2D, Doppler, and color-flow Echocardiogram Engineer Third Assistant: Yesica Enriquez RVT Ht: 6 ft 1 in Wt: 286lbs BSA: 2.50 BP: 141/80 mmHg Indications: DIZZINESS,CORONARY ARTERY DISEASE 2D Dimensions LA Volume 43.20 mL LA Volume Index 17.21 mL/m2 (M/F) 16-34 M-Mode Dimensions RVDd 2.82 cm (0.9-2.6) LA Diam 3.68 cm (1.9-4.0) LVDd 5.23 cm (3.5-5.7) LVDs 3.69 cm (3.5-5.7) IVSd 1.03 cm (0.6-1.1) PWd 1.03 cm (0.6-1.1) EF (Teich) 55.90% FS 29.40% EDV (Teich) 131.20 mL TAPSE 2.64 (<1.7) ESV (Teich) 57.80 mL LV Diastology E Decel Time 217 (160-240 msec) E/A Ratio 0.9 Aortic Valve NAHED Index 1.26 cm2/m2 AoV Peak Michael. 173.0 (50-130 cm/s) AO Peak GR. 11.90 mmHg AO Mean GR. 6.50 (<5 mmHg) AO VTI 37.3 (18-25 cm) NAHED (VTI) 3.25 (2.5-4.5 cm2) Mitral Valve MV E Max Michael. 92.0 (40-130 cm/s) MV A Velocity 108.0 (40-130 cm/s) E/A Ratio 0.86 MV PHT 63.0 ms Pulmonary Valve PV Peak Velocity 105.0 (50-150 cm/s) Left Ventricle The left ventricle is normal size. Left ventricular systolic function is normal. The left ventricular ejection fraction is within the normal range. There is increased left ventricular wall thickness. There is normal LV segmental wall motion. The left ventricular diastolic function is indeterminate. LVEF is 55% Right Ventricle The right ventricle is mildly dilated. The right ventricular systolic function is normal. Atria Left atrium is mildly dilated. Right atrium is mildly dilated. There is no color Doppler evidence of interatrial shunt. Aortic Valve The aortic valve is mildly thickened. There is no hemodynamically significant aortic valvular stenosis. Trace aortic regurgitation is present. Mitral Valve The mitral valve is normal in structure. No evidence of mitral valve stenosis. Trace mitral regurgitation is present. Tricuspid Valve The tricuspid valve leaflets are thin and pliable. Mild tricuspid regurgitation. RVSP is 20-25 mmHg. Pulmonic Valve The pulmonary valve is grossly normal in structure. Trace pulmonic valve regurgitation is present. Great Vessels The aortic root is normal in size. IVC is normal in size and collapses >50% with inspiration. Pericardium There is no pericardial effusion. Other Information Study Quality: Fair Conclusion Normal biventricular systolic function. Mild RV dilation. Mild biatrial dilation. Mild TR. Electronically signed by : Kathia Bradley MD 01/17/2025 16:51:07
== END 2025-01-09 23:59 | disposition home or self-care (01) ==
LOC: RT 08:24
PROVIDERS: PCP Family Medicine; Visit Provider Nurse Practitioner
DX: I07.1 Rheumatic tricuspid insufficiency (principal); I11.9 Hypertensive heart disease without heart failure; I25.118 Atherosclerotic heart disease of native coronary artery with other forms of angina pectoris; E78.49 Other hyperlipidemia; R42 Dizziness and giddiness; R00.1 Bradycardia, unspecified
CPT/HCPCS: 93306; 93880